=== PATIENT | female | born 1960 | race Caucasian/White ===

== ENCOUNTER 2018-08-14 14:17 | Observation (INO) | payer MEDICAID ==
[~2018-08-14] VITALS: Ht 149.9 cm; Wt 75.2 kg
[~2018-08-14 14:17] MED LIST: ALBU90AE INH; BUPR-173 PO; FLUT1BLS INH; POTA500P26 PO; PRAV40TA2 PO; SERT25TA PO
[2018-08-14 15:47] LABS: BASOPHILS # (AUTO) 0.02 x10^3/uL (0-0.1); BASOPHILS % (AUTO) 0 % (0-1); EOSINOPHILS # (AUTO) 0.01 x10^3/uL (0-0.4); EOSINOPHILS % (AUTO) 0 % (1-7); LYMPHOCYTES # (AUTO) 2.04 x10^3/uL (1-3.4); LYMPHOCYTES % (AUTO) 25 % (22-44); MD NO; MEAN CORPUSCULAR HEMOGLOBIN 31.3 pg (27.0-34.8); MEAN CORPUSCULAR HGB CONC 33.5 g/dL (32.4-35.8); MEAN CORPUSCULAR VOLUME 93.5 fL (80-100); MEAN PLATELET VOLUME 9.2 fL (7.4-10.4); MONOCYTES # (AUTO) 0.53 x10^3/uL (0.2-0.8); MONOCYTES % (AUTO) 7 % (2-9); NEUTROPHILS # (AUTO) 5.51 x10^3/uL (1.8-6.8); NEUTROPHILS % (AUTO) 68 % (42-75); PLATELET COUNT 225 x10^3/uL (130-400); RED BLOOD COUNT 4.95 x10^6/uL (3.82-5.3); RED CELL DISTRIBUTION WIDTH 13.2 % (9.6-15.2)
[2018-08-14 15:57] LABS: ALANINE AMINOTRANSFERASE 80 U/L (12-78); ALBUMIN 3.7 g/dL (3.4-5.0); ANION GAP 8 mmol/L (5-15); CALCIUM 8.6 mg/dL (8.5-10.1); CHLORIDE 100 mmol/L (98-107); CREATININE 0.91 mg/dL (0.55-1.02)
[2018-08-14 15:59] LABS: ALKALINE PHOSPHATASE 93 U/L (45-117); BILIRUBIN,TOTAL 0.5 mg/dL (0.2-1.0); TOTAL PROTEIN 7.5 g/dL (6.4-8.2)
--- NOTE | 2018-08-14 16:42 | NUR ---
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
--- NOTE | 2018-08-14 17:12 | NUR ---
pt ambulated to bathroom to provide ua.
[2018-08-14 17:41] LABS: CULTURE INDICATED? YES; MICROSCOPIC INDICATED
--- NOTE | 2018-08-14 17:59 | NUR ---
PT IS RESTING IN BED, WATCHING TV, RESPIRATIONS EQUAL AND NON LABORED. NAD. PT IS CONNECTED TO THE MONITOR. CALL LIGHT WITHIN REACH.
--- NOTE | 2018-08-14 18:52 | NUR ---
REPORT GIVEN TO DEYANIRA CALDWELL.
--- NOTE | 2018-08-14 19:22 | NUR ---
Sergio murcia in [facility] - 08/14/18 at 1924 by CRIS RREPORT GIVEN TO JAVI VÁZQUEZ
[2018-08-14 20:10] VITALS: BP 126/86
[2018-08-14] MEDS ORDERED: POTA99TA2 PO (20:23)
[2018-08-14] MEDS ORDERED: FLUT1DIS3 INH (20:25)
[2018-08-14] MEDS ORDERED: ALBUTEROL/IPRATROPIUM 2.5MG/0.5MG, 3 ML IPPB PRN (20:30)
[2018-08-14] MEDS ORDERED: ACETAMINOPHEN 325 MG TABLET PO PRN (20:30)
[2018-08-14] MEDS: ALBUTEROL/IPRATROPIUM 2.5MG/0.5MG, 3 ML HHN SCH (20:30)
[2018-08-14] MEDS: ALBUTEROL SULFATE 2.5 MG/3 ML NPPB SCH (20:30)
[2018-08-14] MEDS ORDERED: ONDANSETRON 2MG/ML, 2ML IV PRN (20:30)
[2018-08-14] MEDS ORDERED: POLY10DR3 EACHEYE (20:34)
[2018-08-14] MEDS ORDERED: PRAVASTATIN 40 MG TABLET PO SCH (21:00)
[2018-08-14] MEDS: BUDESONIDE 0.5 MG/2 ML INHA NPPB SCH (21:00)
[2018-08-14] MEDS: methylPREDNISolone SOD SUCC 40 MG/ML IV SCH (21:33)
[2018-08-14] MEDS: PANTOPRAZOLE 40 MG IV IVPush SCH (21:33)
[2018-08-15 02:00] VITALS: BP 139/65
[2018-08-15] MEDS: ALBUTEROL SULFATE 2.5 MG/3 ML NPPB SCH (02:30)
[2018-08-15] MEDS: ALBUTEROL/IPRATROPIUM 2.5MG/0.5MG, 3 ML HHN SCH ×2 (02:30→10:00)
[2018-08-15 08:00] VITALS: BP 124/75
[2018-08-15] MEDS ORDERED: OMNIPAQUE 350 MG/ML, 100ML BOTTLE ONE (08:06)
[2018-08-15] MEDS ORDERED: FLUTICASONE/VILANTEROL 200-25MCG/INH INH SCH (09:00)
[2018-08-15] MEDS ORDERED: BUPROPION SR 100 MG TABLET PO SCH (09:00)
[2018-08-15] MEDS: PANTOPRAZOLE 40 MG IV IVPush SCH (09:14)
[2018-08-15] MEDS: methylPREDNISolone SOD SUCC 40 MG/ML IV SCH (09:14)
[2018-08-15] MEDS: BUDESONIDE 0.5 MG/2 ML INHA NPPB SCH (10:00)
[2018-08-15] MEDS ORDERED: ALBUTEROL/IPRATROPIUM 2.5MG/0.5MG, 3 ML NPPB SCH (14:30)
== END 2018-08-15 11:05 | disposition home or self-care (01) ==
LOC: ED 18:09 → EDIP 18:10 → INTOOBSV 18:10 → ED 18:14 → 3NW 20:00 → DCLOUNGE 08-15 11:00
PROVIDERS: ADMIT Internal Medicine; ATTEND Internal Medicine
DX: K92.2 Gastrointestinal hemorrhage, unspecified (principal); K76.0 Fatty (change of) liver, not elsewhere classified; Z79.899 Other long term (current) drug therapy; D62 Acute posthemorrhagic anemia; J45.901 Unspecified asthma with (acute) exacerbation; E78.5 Hyperlipidemia, unspecified; F31.9 Bipolar disorder, unspecified; Z82.3 Family history of stroke; Z82.49 Family history of ischemic heart disease and other diseases of the circulatory system; Z87.891 Personal history of nicotine dependence
CPT/HCPCS: 36415; 74174; 80053; 81001; 85014; 85018; 85025; 86677; 86850; 86900; 87077; 87086; 87186; 94640; 96374; 96375; 96376; 99284; C9113; G0378; J2920; J7620; J7626; Q9967; 99285

== ENCOUNTER 2018-09-03 12:09 | Emergency (ER) | payer MEDICAID ==
[~2018-09-03] VITALS: Ht 149.9 cm; Wt 74.6 kg
[~2018-09-03 12:09] MED LIST changes: +FLUT1DIS3 INH; +POLY10DR3 EACHEYE; +POTA99TA2 PO
[2018-09-03 12:12] VITALS: BP 155/109
--- NOTE | 2018-09-03 12:15 | NUR ---
PT USED OLD EYE DROPS BECAUSE SHE BELIEVED SHE HAD PINK EYE WITH WORSENED EFFECT, EYES RED AND BLURRED VISION BILAT. MD AT BEDSIDE, MEDICATIONS IN ROOM
[2018-09-03] MEDS ORDERED: FLUORESCEIN OPHTHALMIC 1 MG STRIP ONE (12:25)
[2018-09-03] MEDS ORDERED: PROPARACAINE OPHTH 0.5%, 15ML ONE (12:26)
[2018-09-03] MEDS ORDERED: PROPARACAINE OPHTH 0.5%, 15ML EACHEYE ONE (12:30)
[2018-09-03] MEDS ORDERED: FLUORESCEIN OPHTHALMIC 1 MG STRIP EACHEYE ONE (12:30)
== END 2018-09-03 13:03 | disposition home or self-care (01) ==
LOC: ED 12:57
DX: H10.13 Acute atopic conjunctivitis, bilateral (principal); I10 Essential (primary) hypertension; J45.909 Unspecified asthma, uncomplicated
CPT/HCPCS: 99283

== ENCOUNTER 2018-10-08 15:36 | Inpatient (IN) | payer MEDICAID ==
[~2018-10-08] VITALS: Ht 149.9 cm; Wt 76.0 kg
[2018-10-08] MEDS ORDERED: ASPIRIN 81 MG TABLET CHEW PO ONE (16:00)
[2018-10-08 16:52] LABS: BASOPHILS # (AUTO) 0.03 x10^3/uL (0-0.1); BASOPHILS % (AUTO) 0 % (0-1); EOSINOPHILS # (AUTO) 0.05 x10^3/uL (0-0.4); EOSINOPHILS % (AUTO) 1 % (1-7); LYMPHOCYTES # (AUTO) 1.81 x10^3/uL (1-3.4); LYMPHOCYTES % (AUTO) 23 % (22-44); MD NO; MEAN CORPUSCULAR HEMOGLOBIN 31.4 pg (27.0-34.8); MEAN CORPUSCULAR HGB CONC 33.5 g/dL (32.4-35.8); MEAN CORPUSCULAR VOLUME 93.7 fL (80-100); MEAN PLATELET VOLUME 8.9 fL (7.4-10.4); MONOCYTES # (AUTO) 0.53 x10^3/uL (0.2-0.8); MONOCYTES % (AUTO) 7 % (2-9); NEUTROPHILS # (AUTO) 5.38 x10^3/uL (1.8-6.8); NEUTROPHILS % (AUTO) 69 % (42-75); PLATELET COUNT 314 x10^3/uL (130-400); RED BLOOD COUNT 4.32 x10^6/uL (3.82-5.3); RED CELL DISTRIBUTION WIDTH 13.9 % (9.6-15.2)
[2018-10-08 17:05] LABS: ANION GAP 8 mmol/L (5-15); CALCIUM 9.3 mg/dL (8.5-10.1); CHLORIDE 111 mmol/L (98-107)
[2018-10-08 17:13] LABS: CREATININE 1.05 mg/dL (0.55-1.02); TROPONIN I < 0.015 ng/mL (0.000-0.045)
--- NOTE | 2018-10-08 17:20 | NUR ---
PT TO ROOM FROM LOBBY BY WHEELCHAIR. ASSUMING CARE OF PT AT THIS TIME.
[2018-10-08] MEDS ORDERED: ASPIRIN 81 MG TABLET CHEW ONE (17:33)
--- NOTE | 2018-10-08 18:26 | NUR ---
PT RESTING COMFORTABLY. DENIES ANY PAINAT THIS TIME. FAMILY AT BEDSIDE. VSS. CHART UP FOR RECHECK. ALL CONCERNS ADRESSED.
[2018-10-08] MEDS ORDERED: NITROGLYCERIN OINT 2%, 1GM TP ONE ×2 (19:00→19:18)
--- NOTE | 2018-10-08 19:07 | NUR ---
SBAR REPORT TO JERRY CALDWELL
--- NOTE | 2018-10-08 19:43 | NUR ---
LATE ENTRY: RECEIVED REPORT FROM JAVI PENNINGTON TO ASSUME CARE OF PT. AT APPROX 1910. DR. MOSELEY HAD BEEN IN TO RECHECK PT. JAVI WATTERS ASSISTED THIS RN WITH [facility] PER AUG. PT. CURRENTLY RESTING ON [facility] WITH NADN. DENIES NEEDS. CALL LIGHT IN REACH AND ALL MONITORS IN PLACE. WILL CONTINUE TO MONITOR.
[2018-10-08] MEDS ORDERED: TIOT18CA INH (19:52)
--- NOTE | 2018-10-08 19:58 | NUR ---
MED REC COMPLETED. IV ESTABLISHED FOR ADMIT. PT. AMBULATORY TO BR WITH STEADY GAIT.
--- NOTE | 2018-10-08 20:25 | NUR ---
REPORT TO JAVI LEAL. FLOOR READY FOR PT. TRANSPORT.
[2018-10-08] MEDS ORDERED: POLYETHYLENE GLYCOL 17 GM PACKET PO PRN (20:30)
[2018-10-08] MEDS ORDERED: hydrALAzine 20 MG/ML, 1ML IVPush PRN (20:30)
[2018-10-08 20:59] LABS: TROPONIN I < 0.015 ng/mL (0.000-0.045)
[2018-10-08] MEDS ORDERED: PRAVASTATIN 40 MG TABLET PO SCH (21:00)
[2018-10-08] MEDS ORDERED: ENOXAPARIN 40 MG/0.4 ML SQ SCH (21:00)
[2018-10-08] MEDS: SALMETEROL INH SCH (21:17)
[2018-10-08] MEDS: IPRATROPIUM 0.5 MG/2.5 ML INHA NPPB SCH (21:17)
[2018-10-08] MEDS: FLUTICASONE INH SCH (21:17)
[2018-10-08] MEDS: ACETAMINOPHEN 325 MG TABLET PO PRN (21:32)
[2018-10-08 21:36] VITALS: BP 128/83
[2018-10-09 01:39] VITALS: BP 129/78
[2018-10-09 02:37] LABS: BASOPHILS # (AUTO) 0.02 x10^3/uL (0-0.1); BASOPHILS % (AUTO) 0 % (0-1); EOSINOPHILS # (AUTO) 0.06 x10^3/uL (0-0.4); EOSINOPHILS % (AUTO) 1 % (1-7); LYMPHOCYTES # (AUTO) 2.28 x10^3/uL (1-3.4); LYMPHOCYTES % (AUTO) 36 % (22-44); MD NO; MEAN CORPUSCULAR HEMOGLOBIN 32.1 pg (27.0-34.8); MEAN CORPUSCULAR HGB CONC 33.9 g/dL (32.4-35.8); MEAN CORPUSCULAR VOLUME 94.6 fL (80-100); MEAN PLATELET VOLUME 8.5 fL (7.4-10.4); MONOCYTES # (AUTO) 0.48 x10^3/uL (0.2-0.8); MONOCYTES % (AUTO) 8 % (2-9); NEUTROPHILS # (AUTO) 3.47 x10^3/uL (1.8-6.8); NEUTROPHILS % (AUTO) 55 % (42-75); PLATELET COUNT 268 x10^3/uL (130-400); RED BLOOD COUNT 3.85 x10^6/uL (3.82-5.3)
[2018-10-09 02:59] LABS: ALBUMIN 3.3 g/dL (3.4-5.0); ANION GAP 5 mmol/L (5-15); CALCIUM 8.7 mg/dL (8.5-10.1); CHLORIDE 110 mmol/L (98-107)
[2018-10-09 03:01] LABS: TROPONIN I < 0.015 ng/mL (0.000-0.045)
[2018-10-09 03:02] LABS: ALANINE AMINOTRANSFERASE 28 U/L (12-78); ALKALINE PHOSPHATASE 73 U/L (45-117); BILIRUBIN,TOTAL 0.2 mg/dL (0.2-1.0); CHOL/HDL RATIO 3.3; CHOLESTEROL, TOTAL 130 mg/dL (140-239); CREATININE 1.02 mg/dL (0.55-1.02); HDL CHOL % 31 % (28-40); HDL CHOLESTEROL (DIRECT) 40 mg/dL (40-60); LDL CHOLESTEROL,CALCULATED 58 mg/dL (54-169); LDL/HDL RATIO 1.5 (0.5-3.0); TOTAL PROTEIN 5.9 g/dL (6.4-8.2); TRIGLYCERIDES 160 mg/dL (50-200); VLDL CHOLESTEROL 32 mg/dL (0-25)
[2018-10-09] MEDS: ACETAMINOPHEN 325 MG TABLET PO PRN ×2 (03:24→09:39)
[2018-10-09] MEDS: IPRATROPIUM 0.5 MG/2.5 ML INHA NPPB SCH (03:24)
[2018-10-09 08:20] VITALS: BP 120/80
[2018-10-09] MEDS: FLUTICASONE INH SCH (09:00)
[2018-10-09] MEDS ORDERED: ALBUTEROL SULFATE 2.5 MG/3 ML NPPB SCH (09:00)
[2018-10-09] MEDS: SALMETEROL INH SCH (09:00)
[2018-10-09] MEDS ORDERED: REGADENOSON 0.4 MG/5 ML SYRINGE ONE (10:52)
== END 2018-10-09 13:50 | disposition home or self-care (01) | DRG 313 ==
LOC: ED 20:02 → EDIP 20:21 → 5SO 20:37 → DCLOUNGE 10-09 13:44
PROVIDERS: ADMIT Family Medicine; ATTEND Family Medicine
DX: R07.89 Other chest pain (principal); I10 Essential (primary) hypertension; J45.909 Unspecified asthma, uncomplicated; Z79.82 Long term (current) use of aspirin
CPT/HCPCS: 36415; 71046; 78452; 80048; 80053; 80061; 82040; 83880; 84484; 85025; 93005; 93017; G0378; J1650; J2785; A9502; C9898

== ENCOUNTER 2018-11-14 11:47 | Emergency (ER) | payer MEDICAID ==
[~2018-11-14] VITALS: Ht 149.9 cm; Wt 73.0 kg
[~2018-11-14 11:47] MED LIST changes: +TIOT18CA INH
--- NOTE | 2018-11-14 12:08 | NUR ---
PT TO ED WITH GAN & N/V SINCE LAST NIGHT. PT STATES IT IS BETTER WHEN SHE HOLDS HER HEAD/R EAR, THE PAIN GOES AWAY. PT PLACED ON MONITOR. CALL LIGHT WITHIN REACH, LABS ORDERED
--- NOTE | 2018-11-14 12:40 | NUR ---
RECEIVED REPORT FROM JAVI ESPINOZA. PT RESTING ON [employer].
[2018-11-14 12:44] LABS: BASOPHILS # (AUTO) 0.03 x10^3/uL (0-0.1); BASOPHILS % (AUTO) 0 % (0-1); EOSINOPHILS # (AUTO) 0.07 x10^3/uL (0-0.4); EOSINOPHILS % (AUTO) 1 % (1-7); LYMPHOCYTES # (AUTO) 1.92 x10^3/uL (1-3.4); LYMPHOCYTES % (AUTO) 25 % (22-44); MD NO; MEAN CORPUSCULAR HGB CONC 32.4 g/dL (32.4-35.8); MEAN CORPUSCULAR VOLUME 95.7 fL (80-100); MEAN PLATELET VOLUME 8.7 fL (7.4-10.4); MONOCYTES # (AUTO) 0.42 x10^3/uL (0.2-0.8); MONOCYTES % (AUTO) 6 % (2-9); NEUTROPHILS % (AUTO) 68 % (42-75); PLATELET COUNT 324 x10^3/uL (130-400); RED BLOOD COUNT 4.63 x10^6/uL (3.82-5.3); RED CELL DISTRIBUTION WIDTH 13.6 % (9.6-15.2)
[2018-11-14 12:53] LABS: ALBUMIN 4.2 g/dL (3.4-5.0); ANION GAP 9 mmol/L (5-15); CALCIUM 9.6 mg/dL (8.5-10.1); CHLORIDE 105 mmol/L (98-107); CREATININE 0.85 mg/dL (0.55-1.02)
[2018-11-14] MEDS ORDERED: ONDANSETRON ODT 4 MG PO ONE (13:00)
[2018-11-14] MEDS ORDERED: MECLIZINE CHEWABLE 25 MG TAB PO ONE (13:00)
[2018-11-14] MEDS ORDERED: MECLIZINE CHEWABLE 25 MG TAB ONE (13:16)
[2018-11-14] MEDS ORDERED: ONDANSETRON ODT 4 MG ONE (13:17)
--- NOTE | 2018-11-14 14:05 | NUR ---
PT RESTING ON GURNEY. NADN. DURAN.
[2018-11-14] MEDS ORDERED: ACETAMINOPHEN 500 MG TABLET ONE (14:12)
[2018-11-14] MEDS ORDERED: ACETAMINOPHEN 500 MG TABLET PO ONE (14:30)
[2018-11-14 15:03] VITALS: BP 135/87
--- NOTE | 2018-11-14 15:03 | NUR ---
PT RESTING ON GURNEY. SHEARER VSS. REPORT GIVEN TO JAVI SAHU.
--- NOTE | 2018-11-14 15:05 | NUR ---
Patient/Caregiver given discharge instructions and they have confirmed that they understand the instructions. Patient ambulatory with steady gait.
== END 2018-11-14 15:22 | disposition home or self-care (01) ==
LOC: ED 14:10
DX: H81.399 Other peripheral vertigo, unspecified ear (principal); R51 Headache; I10 Essential (primary) hypertension; J45.909 Unspecified asthma, uncomplicated
CPT/HCPCS: 36415; 70450; 80048; 82040; 85025; 93005; 99284; Q0162

== ENCOUNTER 2019-03-05 09:05 | Emergency (ER) | payer BC, MEDICAID ==
[~2019-03-05] VITALS: Ht 149.9 cm; Wt 72.0 kg
[2019-03-05] MEDS ORDERED: SODIUM CHLORIDE 0.9% 1,000ML IVBOLUS ONE (10:00)
[2019-03-05] MEDS ORDERED: SODIUM CHLORIDE FLUSH 10ML SYR IVF ONE (10:00)
[2019-03-05] MEDS ORDERED: ONDANSETRON 2MG/ML, 2ML IVPush ONE (10:00)
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
[2019-03-05 10:02] LABS: CULTURE INDICATED? YES; MICROSCOPIC INDICATED
[2019-03-05 10:05] LABS: AMPHETAMINE SCREEN, URINE Negative (Negative); BARBITURATE SCREEN, URINE Negative (Negative); BENZODIAZEPINE SCREEN, URINE Negative (Negative); CANNABINOID SCREEN, URINE Negative (Negative); COCAINE SCREEN, URINE Negative (Negative); METHADONE SCREEN, URINE Negative (Negative); OPIATE SCREEN, URINE Negative (Negative)
[2019-03-05 10:14] VITALS: BP 148/80
--- NOTE | 2019-03-05 10:47 | NUR ---
PT RESTING IN BED, DENIES ANY CURRENT NEEDS OR CONCERNS AT THIS TIME.
[2019-03-05] MEDS ORDERED: ONDANSETRON 2MG/ML, 2ML ONE (10:53)
--- NOTE | 2019-03-05 10:55 | NUR ---
PT UP TO RESTROOM WITH STRONG INDEPENDENT GAIT. PROVIDED WITH LEMON GLYCERINE SWABS PER REQUEST. DENIES ANY FURTHER NEEDS OR CONCERNS AT THIS TIME.
[2019-03-05 11:39] LABS: ALBUMIN 3.5 g/dL (3.4-5.0); ANION GAP 7 mmol/L (5-15); CALCIUM 8.7 mg/dL (8.5-10.1); CHLORIDE 111 mmol/L (98-107)
[2019-03-05 11:52] LABS: ALANINE AMINOTRANSFERASE 34 U/L (12-78); ALKALINE PHOSPHATASE 80 U/L (45-117); BILIRUBIN,TOTAL 0.5 mg/dL (0.2-1.0); CREATININE 0.79 mg/dL (0.55-1.02); SALICYLATE LEVEL < 1.7 mg/dL (2.8-20.0); TOTAL PROTEIN 6.4 g/dL (6.4-8.2)
[2019-03-05 12:03] LABS: BASOPHILS # (AUTO) 0.02 x10^3/uL (0-0.1); BASOPHILS % (AUTO) 0 % (0-1); EOSINOPHILS # (AUTO) 0.05 x10^3/uL (0-0.4); EOSINOPHILS % (AUTO) 1 % (1-7); LYMPHOCYTES # (AUTO) 1.92 x10^3/uL (1-3.4); LYMPHOCYTES % (AUTO) 24 % (22-44); MD NO; MEAN CORPUSCULAR HEMOGLOBIN 32.9 pg (27.0-34.8); MEAN CORPUSCULAR HGB CONC 33.4 g/dL (32.4-35.8); MEAN CORPUSCULAR VOLUME 98.3 fL (80-100); MEAN PLATELET VOLUME 8.9 fL (7.4-10.4); MONOCYTES # (AUTO) 0.48 x10^3/uL (0.2-0.8); MONOCYTES % (AUTO) 6 % (2-9); NEUTROPHILS # (AUTO) 5.54 x10^3/uL (1.8-6.8); NEUTROPHILS % (AUTO) 69 % (42-75); PLATELET COUNT 254 x10^3/uL (130-400); RED BLOOD COUNT 4.14 x10^6/uL (3.82-5.3)
== END 2019-03-05 12:40 | disposition home or self-care (01) ==
LOC: ED 09:28
DX: K29.00 Acute gastritis without bleeding (principal); I10 Essential (primary) hypertension
CPT/HCPCS: 36415; 80053; 80307; 81001; 84443; 85025; 87086; 93005; 96361; 96374; 99284; J2405; J7030

== ENCOUNTER → 2019-06-05 | Outpatient (CLI) | payer MEDICAID ==
[~2019-06-05] MED LIST changes: +OMNIPAQUE 350 MG/ML, 100ML BOTTLE ONE
== END | disposition home or self-care (01) ==
LOC: CFH 12:00
PROVIDERS: ATTEND Otolaryngology
DX: H93.13 Tinnitus, bilateral (principal); R42 Dizziness and giddiness; R51 Headache; H90.3 Sensorineural hearing loss, bilateral
CPT/HCPCS: 70496; Q9967

== ENCOUNTER 2020-04-14 19:49 | Emergency (ER) | payer MEDICAID ==
[~2020-04-14] VITALS: Ht 149.9 cm; Wt 77.4 kg
[~2020-04-14 19:49] MED LIST changes: -OMNIPAQUE 350 MG/ML, 100ML BOTTLE ONE
[2020-04-14 19:51] VITALS: BP 142/89
--- NOTE | 2020-04-14 21:05 | NUR ---
pt d/c with d/c summary and scripts. all questions answered. pt ambulates to registration desk with steady gait for d/c home. pt denies any other needs pertaining to this visit.
== END 2020-04-14 21:07 ==
LOC: ED 21:01
DX: H10.023 Other mucopurulent conjunctivitis, bilateral (principal); I10 Essential (primary) hypertension; J45.909 Unspecified asthma, uncomplicated
CPT/HCPCS: 99283

== ENCOUNTER 2020-05-08 10:49 | Emergency (ER) | payer MEDICAID ==
[~2020-05-08] VITALS: Ht 149.9 cm; Wt 77.2 kg
[2020-05-08] MEDS ORDERED: LIDOCAINE-MPF 1%, 5ML INFIL ONE (11:30)
[2020-05-08] MEDS ORDERED: LIDOCAINE-MPF 1%, 5ML ONE (11:35)
[2020-05-08 11:56] VITALS: BP 128/85
== END 2020-05-08 12:06 | disposition home or self-care (01) ==
LOC: ED 11:35
DX: L03.012 Cellulitis of left finger (principal); I10 Essential (primary) hypertension; E11.9 Type 2 diabetes mellitus without complications; E78.5 Hyperlipidemia, unspecified; J45.909 Unspecified asthma, uncomplicated
CPT/HCPCS: 10060; 99283

== ENCOUNTER 2020-05-23 12:15 | Emergency (ER) | payer MEDICAID ==
[~2020-05-23] VITALS: Ht 149.9 cm; Wt 78.5 kg
--- NOTE | 2020-05-23 15:41 | NUR ---
Pt states HX of back pain, recently at chiropracter, back pain worse. Pain in neck, low back, radiating through arms.
[2020-05-23] MEDS ORDERED: METHOCARBAMOL 750 MG TABLET PO ONE (16:30)
[2020-05-23] MEDS ORDERED: KETOROLAC 30 MG/1 ML IM ONE (16:30)
[2020-05-23] MEDS ORDERED: METHOCARBAMOL 750 MG TABLET ONE (16:37)
[2020-05-23] MEDS ORDERED: KETOROLAC 30 MG/1 ML ONE (16:38)
--- NOTE | 2020-05-23 16:46 | NUR ---
Pt medicated for pain
[2020-05-23 16:47] VITALS: BP 152/80
== END 2020-05-23 17:02 | disposition home or self-care (01) ==
LOC: ED 16:58
DX: M54.12 Radiculopathy, cervical region (principal); M54.5 Low back pain; J45.909 Unspecified asthma, uncomplicated; I10 Essential (primary) hypertension; E78.5 Hyperlipidemia, unspecified
CPT/HCPCS: 72020; 72050; 72110; 96372; 99284; J1885; J7512